=== PATIENT | male | born 1980 | race Caucasian/White ===

== ENCOUNTER → 2016-10-04 | Outpatient (CLI) | payer OTHER ==
--- NOTE | ~2016-10-04 | CR63 ---
[facility] A Service of [facility] & [facility] RADIOLOGY TEXT RESULTS PATIENT: IAM SNEED LOCATION: [facility] : 78 UNIT #: [id number] AGE: [address]: Georges Schmidt MD SEX: M ORDER DR: [id number] [facility] [address] [facility] [place], [place] [address] [id number] O MR#: [id number] Acc #: [id number] NAME: IAM SNEED : 1980 SEX: M STUDY DATE/TIME: 10/04/2016 19:29 UNIT: [facility] ROOM: STUDY DESCRIPTION: CR Chest 2 View Attending Physician: Georges Schmidt M.D. Ordering Physician: Georges Schmidt M.D. Primary Care Physician: Jesi Palafox M.D. MEDICAL IMAGING REPORT This report is preliminary unless electronic signature is present EXAM PA and lateral chest radiograph HISTORY Cough for 3 days. FINDINGS Heart size is within normal limits. I do think the patient probably has some patchy infiltrates in both lungs. No pneumothorax or pleural effusion is seen. No aggressive osseous abnormalities are identified. IMPRESSION Suspected subtle patchy infiltrates within both lungs can certainly reflect multifocal pneumonia. Short-term followup suggested to document resolution. Dictated by... Tess Charles M.D. THIS IS AN ELECTRONICALLY VERIFIED REPORT Tess Charles M.D. at 10/05/2016 10:46 AM AFF/pcl TD: 10/04/2016 22:02 JOB #: [id number] MEDICAL IMAGING REPORT Page 1 of 1 COPY
[2016-10-04 19:50] LABS: BASOPHIL% 0.5 % (0-2.5); EOSINOPHIL# 0.1 X10e3 (0-0.7); EOSINOPHIL% 1.5 % (0.0-7.0); HEMATOCRIT 47.6 % (38.0-50.0); HEMOGLOBIN 15.8 gm/dL (13.0-16.0); LYMPHOCYTE# 1.1 X10e3 (1.0-3.5); LYMPHOCYTE% 22.7 % (17.0-45.0); MEAN CELL VOLUME 87.6 FL (83-96); MEAN CORPUSCULAR HEMOGLOBIN 29.1 PG (28-34); MEAN CORPUSCULAR HGB CONC 33.2 g/dL (30-36); MEAN PLATELET VOLUME 8.3 FL (6.5-11.5); MONOCYTE# 0.4 X10e3 (0-1.0); MONOCYTE% 8.3 % (3.0-12.0); NEUTROPHIL# 3.4 X10e3 (1.5-7.1); PLATELET COUNT 209 X10e3 (140-420); RED BLOOD COUNT 5.43 X10e (3.90-5.60); RED CELL DISTRIBUTION WIDTH 13.9 % (11.0-15.5)
[2016-10-04 19:51] LABS: DIFF IND NO
[2016-10-04 20:20] LABS: ALBUMIN SERUM 4.2 g/dL (3.5-5.0); ALKALINE PHOSPHATASE 43 U/L (32-92); ALT (SGPT) 29 U/L (10-40); AST (SGOT) 30 U/L (10-42); BILIRUBIN,TOTAL 0.5 mg/dL (0.2-2.0); BLOOD UREA NITROGEN 19 mg/dL (9-23); BUN/CREATININE RATIO 14.61; CALCIUM SERUM 9.3 mg/dL (8.4-10.2); CARBON DIOXIDE 26 mmol/L (22-31); CHLORIDE 106 mmol/L (100-111); CREATININE SERUM 1.3 mg/dL (0.6-1.4); GLOM FILT RATE Estimated 70.2 mL/min (>60); GLUCOSE FASTING 91 mg/dL (70-110); POTASSIUM 3.9 mmol/L (3.5-5.1); PROTEIN TOTAL SERUM 7.3 g/dL (6.0-8.3); SODIUM 140 mmol/L (135-145)
[2016-10-04 20:31] LABS: BILIRUBIN, DIRECT <0.1 mg/dL (0.0-0.2)
[2016-10-08 03:12] LABS: HA AB IGM (HEPPAN) Nonreactive (()); HB CORE AB IGM (HEPPAN) Nonreactive (Nonreactive); HB S AG (HEPPAN) Nonreactive (Nonreactive); HEP C AB (HEPPAN) Nonreactive (Nonreactive); HEP C AB SIGNAL TO CUTOFF 0.03 ratio (<1.00); HEPATITIS B SURFACE ANTIBODY >1000 mIU/mL (>=10)
== END | disposition home or self-care (01) ==
LOC: CLAB 18:58
PROVIDERS: Dermatology MOHS-Micrographic Surgery
DX: L40.0 Psoriasis vulgaris (principal); Z79.899 Other long term (current) drug therapy
CPT/HCPCS: 36415; 71020; 80053; 80074; 82248; 85025; 86617; 86618; 86706